=== PATIENT | male | born 1980 | race Caucasian/White ===

== ENCOUNTER 2024-02-25 13:01 | Emergency (ER) | payer MEDICAID ==
[~2024-02-25] VITALS: Ht 175.3 cm; Wt 102.0 kg
[2024-02-25 13:05] VITALS: BP 136/91; TEMP 98.1; O2SAT 99
[2024-02-25 13:08] VITALS: PULSE 99; RESP 18; O2SAT 100
[2024-02-25 15:06] LABS: BASOPHILS % 0.5 % (0.0-2.0); EOSINOPHILS % 1.9 % (0.0-5.0); HEMATOCRIT. 46.6 % (42.0-52.0); HEMOGLOBIN. 16.1 g/dL (14.0-18.0); LYMPHOCYTES % 36.6 % (20.0-50.0); MEAN CORPUSCULAR HEMOGLOBIN 30.8 pg (28.0-32.0); MEAN CORPUSCULAR HGB CONC 34.6 g/dL (31.0-37.0); MEAN PLATELET VOLUME 7.7 fl (7.4-10.4); MONOCYTES % 7.9 % (2.0-8.0); NEUTROPHILS % 53.1 % (40.0-76.0); PLATELET 301 x1000/uL (130-400); RED BLOOD CELL COUNT 5.23 mill/uL (4.7-6.1); RED CELL DISTRIBUTION WIDTH 14.1 % (11.6-14.6); WHITE BLOOD COUNT 7.6 x1000/uL (4.5-11.0)
[2024-02-25 15:18] LABS: CHLORIDE 103 mEq/L (98-107); POTASSIUM 4.2 mEq/L (3.5-5.1); SODIUM 141 mEq/L (136-145)
[2024-02-25 15:19] LABS: CARBON DIOXIDE 30 mEq/L (21-32)
[2024-02-25 15:20] LABS: CALCIUM 9.7 mg/dL (8.7-10.4)
[2024-02-25 15:24] LABS: CREATININE 1.3 mg/dL (0.6-1.3); GLUCOSE 133 mg/dL (70-105)
[2024-02-25 15:25] LABS: UREA NITROGEN BLOOD 19 mg/dL (9-23)
[2024-02-25 15:40] LABS: TROPONIN I HIGH SENSITIVITY < 4 ng/L (3.0-53)
== END 2024-02-25 20:08 | disposition home or self-care (01) ==
LOC: ER 13:17
DX: R07.89 Other chest pain (principal)
CPT/HCPCS: 36415; 71045; 80048; 84484; 85025; 93005; 99285